=== PATIENT | male | born 1975 | race African-American/Black ===

== ENCOUNTER 2019-10-21 03:38 | Emergency (ER) | payer MEDICAID, MEDICARE ==
[~2019-10-21] VITALS: Ht 185.4 cm; Wt 100.0 kg
[2019-10-21] MEDS ORDERED: DIPHENHYDRAMINE 25MG CAPSULE PO ONE (06:30)
[2019-10-21] MEDS ORDERED: PERMETHRIN 5% CREAM 60GM TOP ONE (06:30)
[2019-10-21 06:37] LABS: CLARITY URINE CLEAR (CLEAR); COLOR URINE YELLOW (YELLOW); KETONES URINE NEGATIVE (NEGATIVE); LEUKOCYTE ESTERASE URINE NEGATIVE (NEGATIVE); NITRITE URINE NEGATIVE (NEGATIVE); OCCULT BLOOD URINE NEGATIVE (NEGATIVE); PH URINE 5.5 (4.5-8.0); PROTEIN URINE NEGATIVE (NEGATIVE); SPECIFIC GRAVITY URINE 1.026 (1.005-1.030)
[2019-10-21 07:22] LABS: *AMPHETAMINES SCREEN URINE NEGATIVE (NEGATIVE); *BARBITURATES SCREEN URINE NEGATIVE (NEGATIVE); *BENZODIAZEPINES SCREEN URINE NEGATIVE (NEGATIVE); *COCAINE SCREEN URINE NEGATIVE (NEGATIVE); METHADONE URINE SCREEN NEGATIVE (NEGATIVE); OPIATES URINE SCREEN NEGATIVE (NEGATIVE); PHENCYCLIDINE URINE SCREEN NEGATIVE (NEGATIVE)
[2019-10-21 07:23] LABS: CANNABINOID URINE SCREEN PRESUMTIVE POSITIVE (NEGATIVE)
[2019-10-21 08:30] VITALS: BP 132/84
[2019-10-23 04:10] LABS: CHLAMYDIA TRACHOMATIS NAA Negative (Negative); NEISSERIA GONORRHOEAE NAA Negative (Negative)
== END 2019-10-21 09:58 | disposition home or self-care (01) ==
LOC: ER 03:38
DX: B86 Scabies (principal); Z59.0 Homelessness; F17.290 Nicotine dependence, other tobacco product, uncomplicated; Z88.8 Allergy status to other drugs, medicaments and biological substances; Z88.1 Allergy status to other antibiotic agents
CPT/HCPCS: 80305; 81003; 87491; 87591; 99283; Q0163